=== PATIENT | male | born 1955 | race African-American/Black ===

== ENCOUNTER 2016-07-05 05:10 | Emergency (ER) | payer MEDICAID ==
[~2016-07-05] VITALS: Ht 198.1 cm; Wt 116.0 kg
[~2016-07-05 05:10] MED LIST: ASPI325T2 PO; ATEN-42 PO; SIMV40TA5 PO; VALS1TAB74
[2016-07-05 05:40] VITALS: BP 143/82
[2016-07-05] MEDS ORDERED: ACETAMINOPHEN 325MG TABLET PO ONE (10:45)
== END 2016-07-05 14:36 | disposition home or self-care (01) ==
LOC: ER 07:32
DX: I73.9 Peripheral vascular disease, unspecified (principal); M21.612 Bunion of left foot; I10 Essential (primary) hypertension; F17.200 Nicotine dependence, unspecified, uncomplicated; Z96.659 Presence of unspecified artificial knee joint; Z79.82 Long term (current) use of aspirin; Z98.890 Other specified postprocedural states; Z88.8 Allergy status to other drugs, medicaments and biological substances
CPT/HCPCS: 73590; 73610; 73630; 93971; 99284